=== PATIENT | male | born 1950 | race African-American/Black ===

== ENCOUNTER → 2018-12-09 | Outpatient (CLI) | payer BC ==
[2016-04-04 22:28] VITALS: BP 137/73
[~2018-12-09] MED LIST: AMOX1TAB11 PO; CONTRAST GIVEN. MC PRN; CYCL10TA2 PO; IBUP200T44 PO; IOHEXOL 240 MG/ML 50ML VIAL. PO ONE; IOHEXOL 300 MG/ML 100ML VIAL. IV ONE; METF10007 PO; SITA100T PO; VALS160T3 PO
[2018-12-09 10:21] LABS: CREATININE 1.5 mg/dL (0.7-1.3)
--- NOTE | 2018-12-09 15:14 | RAD ---
CT of the abdomen and pelvis with contrast, 12/09/2018: History: Ventral hernia Multidetector CT imaging was performed following oral and IV administration of contrast. There is mild bibasilar linear atelectasis and/or scarring. There is no evidence of a hepatic mass or bile duct dilatation. The gallbladder is unremarkable. No pancreatic abnormality is seen. The spleen is of normal size. There is a 2.9 cm cyst arising from the upper pole of the left kidney. A smaller parapelvic cyst is present in the lower pole of the left kidney. There is mild bilateral renal cortical scarring. A tiny nonobstructing calculus is present in the lower pole of the left kidney. There is no evidence of hydronephrosis. The adrenal glands are unremarkable. There is minimal aortoiliac calcific plaquing without evidence of aneurysm. No abdominal or pelvic adenopathy is seen. There are surgical clips in the prostate bed suggesting a prior prostatectomy. The bowel loops are not dilated. There is a small hiatal hernia. No free fluid or free air is evident in the abdomen or pelvis. A small umbilical hernia is present containing only fat. The fascial defect measures 17 x 14 mm. Mild to moderate scattered degenerative changes are present in the spine and at both hip joints. IMPRESSION: 1. Small fat-containing umbilical hernia. 2. Small left renal cysts. 3. Tiny nonobstructing left intrarenal calculus. 4. Small hiatal hernia. PQRS Compliance Statement: One or more of the following individualized dose reduction techniques were utilized for this examination: 1. Automated exposure control 2. Adjustment of the mA and/or kV according to patient size 3. Use of iterative reconstruction technique
--- NOTE | 2018-12-16 18:38 | HP ---
ADMIT DATE: HISTORY OF PRESENT ILLNESS: This patient comes in with a painful mass at the umbilicus. He states it is getting larger and causing some difficulties and he wishes to have this repaired. PAST MEDICAL HISTORY: Shows normal childhood diseases. He has had an open prostatectomy and has an incision that goes up to this area. He also has had a total shoulder replacement on the left and has had a large tumor removed from the right flank, and those are the only surgeries. ALLERGIES: He has no allergies to his knowledge. MEDICATIONS: The patient does take medicine for hypertension and takes metformin for diabetes. SOCIAL HISTORY: Shows he did not drink other than socially, not enough to get inebriated. Does not smoke and does not use illicit drugs. REVIEW OF SYSTEMS: Negative except for the abdominal discomfort sometimes after he eats at the hernia, which is at the upper portion of the infraumbilical incision on the right. The patient otherwise is doing well. FAMILY HISTORY: Noncontributory. PHYSICAL EXAMINATION: GENERAL: Shows a large, probably 300+ pound male who is about 6 feet 5 inches tall. CHEST: Clear to auscultation. HEART: Had no murmurs, heaves, friction rubs or thrills. NECK: Supple. No goiter was noted. He has a scar of surgery on the left shoulder, otherwise unremarkable. ABDOMEN: Has the scar of the infraumbilical incision up to and including the umbilicus and he did not have this hernia when he had the prostate surgery. The mass is not reducible at this point and is minimally tender. No other hernias or other abnormalities were noted. There was no organomegaly or other masses. No tenderness, guarding, or signs of peritoneal irritation. RECTAL: Not done otherwise. EXTREMITIES: Unremarkable. DIAGNOSES: 1. Arthritis, left shoulder post shoulder replacement. 2. Ventral hernia. 3. Diabetes. 4. Hypertension. MOISE PRUITT MD DR: DELMI/dereje JOB#: [id number] / [id number] SATNAM
== END | disposition home or self-care (01) ==
LOC: CT 09:01
PROVIDERS: ATTEND Specialist
DX: K42.9 Umbilical hernia without obstruction or gangrene (principal); K44.9 Diaphragmatic hernia without obstruction or gangrene; N28.1 Cyst of kidney, acquired; N20.0 Calculus of kidney; I70.8 Atherosclerosis of other arteries; M47.819 Spondylosis without myelopathy or radiculopathy, site unspecified; M16.0 Bilateral primary osteoarthritis of hip
CPT/HCPCS: 36415; 74177; 82565; 84520; Q9966; Q9967

== ENCOUNTER 2019-07-07 07:23 | Day surgery (SDC) | payer BC ==
[~2019-07-07] VITALS: Ht 195.6 cm; Wt 131.5 kg
--- NOTE | 2019-07-07 06:42 | HP ---
ADMIT DATE: 06/30/2019 HISTORY OF PRESENT ILLNESS: The patient has had a mass at the abdominal wall, which is becoming increasingly large and painful, and he wishes to have this evaluated. The lesion includes the umbilicus as he has had a prostate surgeon incision up to and involving the umbilicus. It does cause him tenderness at times getting larger. PAST MEDICAL HISTORY: Shows normal childhood diseases. He does have hypertension for which he takes medication and takes oral hypoglycemics, metformin for his diabetes. He does not take insulin at all. PAST SURGICAL HISTORY: He has had a right shoulder replacement for arthritis and has had open prostatectomy for prostate cancer. Many years ago, he had a large mass removed from the back, which proved to be benign. The prostate surgery was about 12 years ago. ALLERGIES: He denies any allergies. MEDICATIONS: Included antihypertensive medication and metformin for the diabetes. SOCIAL HISTORY: Shows that he drinks only socially and not enough to be inebriated. He does not use illicit drugs and does not smoke. REVIEW OF SYSTEMS: Basically negative except for some pain at the left shoulder where he has had the previous total replacement and does have tender mass though not excruciating at the umbilicus, which was not reducible and this included and going into the older scar. The scar was from previous abdominal surgery and therefore, he has a ventral hernia. Otherwise, he appears to be doing well without any problems. FAMILY HISTORY: Noncontributory. PHYSICAL EXAMINATION: GENERAL: Shows a large gentleman, about 6 feet 5 inches and weighs over 300 pounds, who is alert, cooperative and in no acute distress. CHEST: Clear bilaterally to auscultation. Had a scar of previous surgery where a mass was removed, but it was not cancer. HEART: Showed no murmur, friction rubs or thrills. NECK: Supple. No scar was noted and he had no goiter. Trachea was in midline. ABDOMEN: Soft, no organomegaly was noted. There was no tenderness except for the mass in the midline, which was not reducible. There was no evidence of peritoneal irritation. There was no excruciating pain and the pain was just as we attempted reduction of this incarcerated hernia. RECTAL: Examination was not done. EXTREMITIES: Unremarkable except for knee pain. DIAGNOSES: 1. Arthritis, left shoulder replacement. 2. Ventral hernia. 3. Diabetes. 4. Hypertension. PLAN: Per the patient's request, we plan to repair the incarcerated ventral hernia. MOISE PRUITT MD DR: DELMI/dereje JOB#: [id number] / [id number]
[~2019-07-07 07:23] MED LIST changes: +ASPI81TA50 PO; +BUPIVACAINE-EPI 0.5%-1:200000 MPF 30 ML VIAL. INJ ONE; +CHOL100013 PO; -CONTRAST GIVEN. MC PRN; +CYAN50008 PO; +HYDROmorphone 2 MG/ML VIAL IV PRN; -IOHEXOL 240 MG/ML 50ML VIAL. PO ONE; -IOHEXOL 300 MG/ML 100ML VIAL. IV ONE; +IRBE150T3 PO; +IV RINGERS,LACTATED 1000ML 1,000 ML IV SCH; +LIDOCAINE 1% PF 2 ML VIAL. ID PRN; +METO50TA6 PO; +MORPHINE SULFATE 2 MG/ML VIAL. IV PRN; +MULT-245 PO; +OMEP40CA45 PO; +ONDANSETRON PF 4 MG/2 ML VIAL. IV PRN; +PIOG15TA42 PO; +PROCHLORPERAZINE 10 MG/2 ML VIAL. IV PRN; +fentaNYL PF VIAL 100 MCG/2 ML VIAL IV PRN
[2019-07-07] MEDS ORDERED: INSULIN LISPRO 100 UNIT/ML 3ML VIAL for OP,RR ONLY. SQ PRN (07:45)
[2019-07-07 08:09] LABS: BASO % 1 % (0-3); EOS # 0.2 x10^3/uL (0.0-0.7); EOS % 4 % (0-3); HEMATOCRIT 40.4 % (39.0-53.0); HEMOGLOBIN 13.2 g/dL (13.0-17.5); LYMPH % 23 % (24-48); MEAN CORPUSCULAR HEMOGLOBIN 30 pg (25-35); MEAN CORPUSCULAR HGB CONC 33 g/dL (31-37); MEAN CORPUSCULAR VOLUME 92 fL (79-100); MONO # 0.5 x10^3/uL (0.0-1.1); MONO % 12 % (0-9); NEUT # 2.6 x10^3/uL (1.8-7.7); NEUT % 61 % (31-73); PLATELET COUNT 192 x10^3/uL (140-400); RED BLOOD COUNT 4.37 x10^6/uL (4.30-5.70); RED CELL DISTRIBUTION WIDTH 14.6 % (11.5-14.5); WHITE BLOOD COUNT 4.3 x10^3/uL (4.0-11.0)
[2019-07-07 08:18] LABS: CALCIUM 9.1 mg/dL (8.5-10.1); CREATININE 1.2 mg/dL (0.7-1.3); GFR 72.4; POTASSIUM 3.9 mmol/L (3.5-5.1); PROTHROMBIN TIME PATIENT 12.3 SEC (11.7-14.0)
[2019-07-07 08:23] LABS: ALBUMIN 3.6 g/dL (3.4-5.0); TOTAL BILIRUBIN 0.4 mg/dL (0.2-1.0); TOTAL PROTEIN 7.2 g/dL (6.4-8.2)
[2019-07-07] MEDS ORDERED: ROCURONIUM 50 MG/5 ML VIAL. ONE (08:51)
[2019-07-07] MEDS ORDERED: fentaNYL PF VIAL 100 MCG/2 ML VIAL ONE ×2 (08:53→09:34)
[2019-07-07] MEDS ORDERED: SUCCINYLCHOLINE 200 MG/10 ML VIAL. ONE (09:16)
--- NOTE | 2019-07-07 09:16 | PDOC ---
SURGICAL PROGRESS NOTE Subjective Op Note: Surgeon.......................................Rafat Pre op diag..................................incarcerated ventral hernia Post op diag................................same Anesthesia..................................general Procedure...................................repair incarcerated ventral hernia Blood loss..................................10cc Fluids........................................see anesthesia sheet Drains........................................none Condition...................................satisfactory Vital Signs Vital Signs Date Time Temp Pulse Resp B/P (MAP) Pulse Ox O2 Delivery O2 Flow Rate FiO2 07/07/19 08:14 97.7 64 18 160/91 98 Room Air 97.7 Labs Laboratory Tests Test 07/07/19 07:55 White Blood Count 4.3 x10^3/uL (4.0-11.0) Red Blood Count 4.37 x10^6/uL (4.30-5.70) Hemoglobin 13.2 g/dL (13.0-17.5) Hematocrit 40.4 % (39.0-53.0) Mean Corpuscular Volume 92 fL (79-100) Mean Corpuscular Hemoglobin 30 pg (25-35) Mean Corpuscular Hemoglobin Concent 33 g/dL (31-37) Red Cell Distribution Width 14.6 % (11.5-14.5) Platelet Count 192 x10^3/uL (140-400) Neutrophils (%) (Auto) 61 % (31-73) Lymphocytes (%) (Auto) 23 % (24-48) Monocytes (%) (Auto) 12 % (0-9) Eosinophils (%) (Auto) 4 % (0-3) Basophils (%) (Auto) 1 % (0-3) Neutrophils # (Auto) 2.6 x10^3/uL (1.8-7.7) Lymphocytes # (Auto) 1.0 x10^3/uL (1.0-4.8) Monocytes # (Auto) 0.5 x10^3/uL (0.0-1.1) Eosinophils # (Auto) 0.2 x10^3/uL (0.0-0.7) Basophils # (Auto) 0.0 x10^3/uL (0.0-0.2) Prothrombin Time 12.3 SEC (11.7-14.0) Prothromb Time International Ratio 0.9 (0.8-1.1) Sodium Level 141 mmol/L (136-145) Potassium Level 3.9 mmol/L (3.5-5.1) Chloride Level 105 mmol/L (98-107) Carbon Dioxide Level 28 mmol/L (21-32) Anion Gap 8 (6-14) Blood Urea Nitrogen 18 mg/dL (8-26) Creatinine 1.2 mg/dL (0.7-1.3) Estimated GFR (Cockcroft-Gault) 72.4 BUN/Creatinine Ratio 15 (6-20) Glucose Level 127 mg/dL (70-99) Calcium Level 9.1 mg/dL (8.5-10.1) Total Bilirubin 0.4 mg/dL (0.2-1.0) Aspartate Amino Transf (AST/SGOT) 16 U/L (15-37) Alanine Aminotransferase (ALT/SGPT) 20 U/L (16-63) Alkaline Phosphatase 72 U/L (46-116) Total Protein 7.2 g/dL (6.4-8.2) Albumin 3.6 g/dL (3.4-5.0) Albumin/Globulin Ratio 1.0 (1.0-1.7) Laboratory Tests Test 07/07/19 07:55 White Blood Count 4.3 x10^3/uL (4.0-11.0) Red Blood Count 4.37 x10^6/uL (4.30-5.70) Hemoglobin 13.2 g/dL (13.0-17.5) Hematocrit 40.4 % (39.0-53.0) Mean Corpuscular Volume 92 fL (79-100) Mean Corpuscular Hemoglobin 30 pg (25-35) Mean Corpuscular Hemoglobin Concent 33 g/dL (31-37) Red Cell Distribution Width 14.6 % (11.5-14.5) Platelet Count 192 x10^3/uL (140-400) Neutrophils (%) (Auto) 61 % (31-73) Lymphocytes (%) (Auto) 23 % (24-48) Monocytes (%) (Auto) 12 % (0-9) Eosinophils (%) (Auto) 4 % (0-3) Basophils (%) (Auto) 1 % (0-3) Neutrophils # (Auto) 2.6 x10^3/uL (1.8-7.7) Lymphocytes # (Auto) 1.0 x10^3/uL (1.0-4.8) Monocytes # (Auto) 0.5 x10^3/uL (0.0-1.1) Eosinophils # (Auto) 0.2 x10^3/uL (0.0-0.7) Basophils # (Auto) 0.0 x10^3/uL (0.0-0.2) Prothrombin Time 12.3 SEC (11.7-14.0) Prothromb Time International Ratio 0.9 (0.8-1.1) Sodium Level 141 mmol/L (136-145) Potassium Level 3.9 mmol/L (3.5-5.1) Chloride Level 105 mmol/L (98-107) Carbon Dioxide Level 28 mmol/L (21-32) Anion Gap 8 (6-14) Blood Urea Nitrogen 18 mg/dL (8-26) Creatinine 1.2 mg/dL (0.7-1.3) Estimated GFR (Cockcroft-Gault) 72.4 BUN/Creatinine Ratio 15 (6-20) Glucose Level 127 mg/dL (70-99) Calcium Level 9.1 mg/dL (8.5-10.1) Total Bilirubin 0.4 mg/dL (0.2-1.0) Aspartate Amino Transf (AST/SGOT) 16 U/L (15-37) Alanine Aminotransferase (ALT/SGPT) 20 U/L (16-63) Alkaline Phosphatase 72 U/L (46-116) Total Protein 7.2 g/dL (6.4-8.2) Albumin 3.6 g/dL (3.4-5.0) Albumin/Globulin Ratio 1.0 (1.0-1.7) MOISE PRUITT MD Jul 07, 2019 09:16
[2019-07-07] MEDS ORDERED: LIDOCAINE 2% PF 5 ML VIAL. ONE (09:35)
[2019-07-07] MEDS ORDERED: ONDANSETRON PF 4 MG/2 ML VIAL. ONE (09:35)
[2019-07-07] MEDS ORDERED: DEXAMETHASONE SOD PHOS 4 MG/ML VIAL ONE (09:35)
[2019-07-07] MEDS ORDERED: PROPOFOL 20 ML IV ONE (09:35)
[2019-07-07] MEDS ORDERED: GLYCOPYRROLATE 1 MG/5 ML VIAL. ONE (09:36)
[2019-07-07] MEDS ORDERED: ceFAZolin 2GM PREMIX 2 GM/50 ML BAG IV ONE (10:00)
[2019-07-07] MEDS ORDERED: SEVOFLURANE > 120 MINUTES. IH ONE (10:09)
[2019-07-07] MEDS ORDERED: NEOSTIGMINE METHYLSULFATE 5 MG/5 ML SYRINGE. ONE (10:25)
--- NOTE | 2019-07-07 11:14 | DISCH ---
DISCHARGE INSTRUCTIONS Condition on Discharge Condition on Discharge: Stable Activity After Discharge Activity Instructions for Disc: Other, see below Other activity instructions: No strenuos activity Diet after Discharge Diet after Discharge: Clear Liquid Wound Incision Care Wound/Incision Care: Other, see below Other wound/incision instructi: Keep wound dry and clean..change dress prn..likely in 2-4 days. Follow-Up Follow up with: Call and make appt to see me n 10 days. MOISE PRUITT MD Jul 07, 2019 11:14
[2019-07-07] MEDS ORDERED: oxyCODONE/APAP 7.5/325 1 TAB TABLET PO ONE (11:30)
[2019-07-07] MEDS ORDERED: OXYC1TAB19 PO (11:38)
[2019-07-07 12:04] VITALS: BP 117/62
--- NOTE | 2019-07-07 23:36 | OP ---
DATE OF SURGERY: 07/07/2019 SURGEON: Ubaldo Pruitt MD PREOPERATIVE DIAGNOSIS: Incarcerated ventral hernia. POSTOPERATIVE DIAGNOSIS: Incarcerated ventral hernia. PROCEDURE: Repair of ventral hernia with mesh. ANESTHESIA: General. TECHNIQUE: The patient was properly prepped and draped in routine fashion. He had a hernia at and around the umbilicus and then extended down into the infraumbilical longitudinal incision from where he had a prostatectomy done. The patient has had this mass for a while and it is becoming increasingly painful, not reduced, and therefore, he had it repaired. Under general anesthesia, the patient was properly prepped and draped in routine fashion. An incision was made from extending just above the umbilicus around the right side of the umbilicus down to and including the cephalad portion of the infraumbilical incision longitudinally and went down to the pubis. This was done with a 15 blade and we gingerly went through the skin going into the subcutaneous very gingerly as we did not want to enter the hernia sac. We then pulled with clips on the skin edges laterally and slowly used Metzenbaum scissors to slowly divide the tissues down to the hernia sac. There were actually 2 sacs and we simply went around beyond that and most of the material in the sac was fat and did not appear to be any bowel there. We then carried this around, Metzenbaum scissors dividing all the tissue down into the neck of the sac. We divided the tissues around the neck, which had both areas, in which one may have been an umbilical hernia, could not tell, but the other one was clearly came from and involved cephalad portion of the previous incision. Having freed this up, we then divided the tissue around it, and with some difficulty making the 2 hernias 1, we simply reduced the area and reduced the contents. The scar tissues to the herniated material was slowly pushed away with my finger and also with Metzenbaum scissors cutting some of the scar tissue and the tissue holding the contents from going back in and we were able to reduce the contact totally. We freed up the anterior abdominal wall fascia with finger and pushing the tissues away and then decided we would put a patch there. We did use ____ with a 6 or 8 cm patch and placed this in the area, pulled it up and made so that it laid flat against the fascia of the anterior abdominal wall. We then used interrupted 4-0 suture to close in a transverse fashion this defect. We incorporated the portion of the mesh close to the disk and the sutures. The part of the ____ face inside. It should be noted that we did not enter the peritoneal cavity at all during this procedure. We then having put the sutures in place and the patch being there, the defect was actually fairly small, though the hernia contents was fairly large, we then tied these and the hernia was repaired. We pulled up on the sutures and anesthetized the fascia with 0.5% Marcaine and epinephrine. We then irrigated the wound with saline and then approximated the deeper tissues covering the stitches with subcutaneous fat and we did use 1 suture to suture the umbilicus down to the fascia with 4-0 Vicryl. A 4-0 Vicryl was used to close the subcuticular tissues and obliterate the space and we did this in layers. The skin was closed using a skin stapler and a sterile dressing was applied. The procedure was now terminated. The blood loss was about 10-12 mL. Fluids given can be obtained from the anesthesia sheet. There were no drains and the condition of the patient was satisfactory as he has returned to the recovery room. UBALDO PRUITT MD DR: DELMI/dereje JOB#: [id number] / [id number]
== END 2019-07-07 12:57 | disposition home or self-care (01) ==
LOC: SURG 07:23
PROVIDERS: ATTEND Specialist
DX: K43.6 Other and unspecified ventral hernia with obstruction, without gangrene (principal); I10 Essential (primary) hypertension; E11.9 Type 2 diabetes mellitus without complications; Z79.899 Other long term (current) drug therapy; Z72.89 Other problems related to lifestyle; Z87.39 Personal history of other diseases of the musculoskeletal system and connective tissue; Z79.84 Long term (current) use of oral hypoglycemic drugs; Z79.01 Long term (current) use of anticoagulants
CPT/HCPCS: 36415; 49561; 49568; 80053; 82962; 85025; 85610; C1781; J0330; J0696; J1100; J2001; J2405; J2704; J2710; J3010; J3490